=== PATIENT | male | born 1960 ===

== ENCOUNTER 2018-05-06 10:26 | Emergency (ER) | payer OTHER ==
[~2018-05-06] VITALS: Ht 172.7 cm; Wt 81.6 kg
[2018-05-06] MEDS ORDERED: PRINIVIL20 MG PO (10:51)
[2018-05-06] MEDS ORDERED: ASA81 MG PO (10:52)
[2018-05-06] MEDS ORDERED: LEVOTHYROXINE50 MCG PO (10:52)
[2018-05-06] MEDS ORDERED: NORVASC5 MG PO (10:52)
== END 2018-05-06 18:53 | disposition home or self-care (01) ==
LOC: ER 10:26
DX: L03.113 Cellulitis of right upper limb (principal)